=== PATIENT | female | born 1990 | race African-American/Black ===

== ENCOUNTER 2021-12-23 09:08 | Emergency (ER) | payer OTHER | END 2021-12-23 11:17 | disposition home or self-care (01) | LOC: ER1 09:08 | DX: J06.9 Acute upper respiratory infection, unspecified (principal); Z20.822 Contact with and (suspected) exposure to COVID-19; F17.200 Nicotine dependence, unspecified, uncomplicated; Z91.013 Allergy to seafood | CPT/HCPCS: 0240U; 87081; 87880; 99284 ==

== ENCOUNTER 2021-12-31 08:29 | Emergency (ER) | payer OTHER | END 2021-12-31 10:23 | disposition home or self-care (01) | LOC: ER1 08:29 | DX: B37.3 Candidiasis of vulva and vagina (principal); F17.200 Nicotine dependence, unspecified, uncomplicated | CPT/HCPCS: 81001; 84703; 99283 ==